=== PATIENT | female | born 1985 | race Hispanic/Latino ===

== ENCOUNTER 2021-10-03 11:31 | Emergency (ER) | payer BC ==
[~2021-10-03] VITALS: Ht 154.9 cm; Wt 67.6 kg
[2021-10-03] MEDS ORDERED: IBUPROFEN 400 MG TAB PO ONE (13:15)
[2021-10-03] MEDS ORDERED: ACETAMINOPHEN 325 MG TAB PO ONE (13:15)
[2021-10-03 13:23] LABS: BASOPHILS # (AUTO) 0.1 (0.0-0.1); BASOPHILS % 0.4 % (0.0-1.0); EOSINOPHILS # (AUTO) 0.1 (0.0-0.4); EOSINOPHILS % 0.7 % (0.0-6.0); HEMATOCRIT 42.4 % (34.2-44.1); HEMOGLOBIN 14.4 g/dL (12.0-16.0); LYMPHOCYTES # (AUTO) 1.6 (1.0-3.2); LYMPHOCYTES % 13.7 % (18.0-39.1); MEAN CORPUSCULAR HEMOGLOBIN 30.1 pg (28-32); MEAN CORPUSCULAR VOLUME 88.7 fL (81-99); MONOCYTES # (AUTO) 0.8 (0.2-0.8); MONOCYTES % 7.2 % (4.4-11.3); NEUTROPHILS # (AUTO) 8.9 (2.1-6.9); NEUTROPHILS % 77.6 % (38.7-80.0); PLATELET COUNT 282 x10e3/uL (140-360); RED BLOOD COUNT 4.78 x10e6/uL (3.6-5.1); RED CELL DISTRIBUTION WIDTH 12.2 % (11.7-14.4)
[2021-10-03] MEDS: SODIUM CHLORIDE 0.9% 1000ML 1,000 ML IV SCH ×2 (13:38→14:39)
[2021-10-03 13:44] LABS: ALBUMIN 4.4 g/dL (3.5-5.0); ALBUMIN/GLOBULIN RATIO 1.3 (0.8-2.0); ANION GAP 13.9 mmol/L (8-16); CALCIUM 8.9 mg/dL (8.4-10.2); CREATININE, SERUM 0.82 mg/dL (0.57-1.11); POTASSIUM 3.9 mmol/L (3.5-5.1)
[2021-10-03] MEDS ORDERED: SOTROVIMAB 500 MG in SODIUM CHLORIDE 0.9% 100 ML IV ONE (14:15)
== END 2021-10-03 14:54 | disposition home or self-care (01) ==
LOC: EDSEX 11:31 → ER 11:50
DX: U07.1 COVID-19 (principal); R50.9 Fever, unspecified; R05.9 Cough, unspecified; R09.89 Other specified symptoms and signs involving the circulatory and respiratory systems
CPT/HCPCS: 36415; 71045; 80053; 84702; 85025; 99284; J7030; J7050; U0002

== ENCOUNTER 2022-05-17 22:18 | Emergency (ER) | payer BC, OTHER ==
[~2022-05-17] VITALS: Ht 154.9 cm; Wt 67.6 kg
[2022-05-17] MEDS ORDERED: IBUPROFEN200 MG PO (22:57)
[2022-05-17] MEDS ORDERED: ACETAMINOPHEN500 MG PO (22:57)
== END 2022-05-18 00:53 | disposition home or self-care (01) ==
LOC: FSED 22:22
DX: M54.2 Cervicalgia (principal); R07.89 Other chest pain; V43.62XA Car passenger injured in collision with other type car in traffic accident, initial encounter; Y92.488 Other paved roadways as the place of occurrence of the external cause
CPT/HCPCS: 71046; 72040; 99283

== ENCOUNTER 2023-04-04 16:18 | Emergency (ER) | payer BC ==
[~2023-04-04] VITALS: Ht 154.9 cm; Wt 68.7 kg
[~2023-04-04 16:18] MED LIST: ACETAMINOPHEN500 MG PO; IBUPROFEN200 MG PO
[2023-04-04] MEDS ORDERED: VALACYCLOVIR500 MG PO (17:47)
[2023-04-04] MEDS ORDERED: PREDNISONE20 MG PO ×2 (17:47)
[2023-04-04] MEDS ORDERED: PREDNISONE10 MG PO (17:47)
[2023-04-04] MEDS ORDERED: PREDNISONE5 MG PO (17:47)
[2023-04-04 18:02] VITALS: O2SAT 97
[2023-04-04] MEDS ORDERED: MACROBID 100 M100 MG PO (18:12)
== END 2023-04-04 18:02 | disposition home or self-care (01) ==
LOC: FSED 16:24
DX: G51.0 Bell's palsy (principal); N39.0 Urinary tract infection, site not specified; Z85.41 Personal history of malignant neoplasm of cervix uteri
CPT/HCPCS: 70450; 81003; 99283